=== PATIENT | male | born 1955 | race Caucasian/White ===

== ENCOUNTER 2023-01-10 22:03 | Emergency (ER) | payer BC, MEDICARE, OTHER ==
[2023-01-10 22:25] VITALS: BP 164/98; PULSE 98
[2023-01-10] MEDS ORDERED: Lidocaine 1% 10 ML MDV INJECT ONE (22:27)
== END 2023-01-10 23:23 | disposition home or self-care (01) ==
LOC: JD.ED 22:03
DX: S01.81XA Laceration without foreign body of other part of head, initial encounter (principal); I10 Essential (primary) hypertension; E78.00 Pure hypercholesterolemia, unspecified; E11.9 Type 2 diabetes mellitus without complications; Z88.5 Allergy status to narcotic agent; Z79.82 Long term (current) use of aspirin; Z79.899 Other long term (current) drug therapy; Z79.84 Long term (current) use of oral hypoglycemic drugs; W01.198A Fall on same level from slipping, tripping and stumbling with subsequent striking against other object, initial encounter
CPT/HCPCS: 12013; 99282; J3490

== ENCOUNTER 2023-05-19 05:08 | Inpatient (IN) | payer OTHER ==
[2023-05-19] MEDS ORDERED: Ondansetron 4 MG/2 ML SDV IVPUSH ONE (05:45)
[2023-05-19] MEDS: Sodium Chloride 0.9% 1,000 ML IV SCH ×4 (05:52→21:08)
[2023-05-19] MEDS ORDERED: Thiamine 200 MG/2 ML MDV IVPUSH ONE (06:02)
[2023-05-19 06:39] LABS: BASOPHILS ABSOLUTE AUTO 0.1 K/mm3 (0.0-0.2); EOSINOPHILS ABSOLUTE AUTO 0.1 K/mm3 (0.0-0.4); EOSINOPHILS PERCENT AUTO 1.4 % (0.0-6.0); HEMATOCRIT 24.1 % (42.0-52.0); HEMOGLOBIN 8.8 gm/dl (14.0-18.0); IMMATURE GRAN ABSOLUTE AUTO 0.08 K/mm3 (0.00-0.05); LYMPHOCYTES ABSOLUTE AUTO 1.9 K/mm3 (1.0-4.8); LYMPHOCYTES PERCENT AUTO 22.4 % (24.0-44.0); MEAN CORPUSCULAR HEMOGLOBIN 37.8 pg (28.0-32.0); MEAN CORPUSCULAR HGB CONC 36.5 g/dl (32.0-36.0); MEAN CORPUSCULAR VOLUME 103.4 fl (83.0-99.0); MEAN PLATELET VOLUME 9.9 fl (9.4-12.4); MONOCYTES ABSOLUTE AUTO 1.1 K/mm3 (0.0-0.8); MONOCYTES PERCENT AUTO 12.9 % (0.0-8.0); NEUTROPHILS ABSOLUTE AUTO 5.1 K/mm3 (1.8-7.7); NEUTROPHILS PERCENT AUTO 61.3 % (41.0-71.0); NRBC ABSOLUTE 0.03 (0.00-0.02); NRBC PERCENT 0.4 % (0.0-0.2); PLATELET COUNT,PLT 235 K/mm3 (150-400); RED BLOOD CELL COUNT 2.33 M/mm3 (4.52-5.90); WHITE BLOOD CELL COUNT,WBC 8.29 K/mm3 (3.9-11.3)
[2023-05-19 06:44] LABS: APPEARANCE,URINE CLOUDY (Clear); BILIRUBIN,URINE 2+ (Negative); COLOR,URINE AMBER (Yellow); GLUCOSE,URINE NEGATIVE (Negative); KETONES,URINE 1+ (Negative); LEUKOCYTE ESTERASE,URINE TRACE (Negative); NITRITE,URINE NEGATIVE (Negative); OCCULT BLOOD,URINE 3+ (Negative); PH,URINE 5.5 (5.0-8.0); PROTEIN,URINE 3+ (Negative); UROBILINOGEN,URINE 0.2 (0.2-1.0)
[2023-05-19 06:50] LABS: A/G RATIO 0.7 (1-2); ALBUMIN 2.8 g/dl (3.4-5.0); ANION GAP 20.6 (5-15); BILIRUBIN TOTAL 1.1 mg/dL (0.2-1.0); BUN/CREATININE RATIO 6.9 (14-18); C-REACTIVE PROTEIN 0.6 mg/dL (<1.0); CALCIUM 7.8 mg/dL (8.5-10.1); CREATININE 3.5 mg/dL (0.7-1.3); EST CRCL DRUG DOSING (CG) 23.62 mL/min; MAGNESIUM 0.5 mg/dL (1.8-2.4)
[2023-05-19 06:52] LABS: POTASSIUM,K 1.6 mEq/L (3.5-5.1)
[2023-05-19] MEDS ORDERED: Magnesium Sulfate/Water 2 GM in Premix Bag 1 BAG IV ONE ×2 (06:55→18:41)
[2023-05-19 06:59] LABS: INR 1.21; PROTHROMBIN TIME 12.8 SECONDS (9.7-12.0)
[2023-05-19 07:02] LABS: BACTERIA,URINE MANY /hpf (FEW); MUCUS,URINE RARE /hpf (FEW); RBC,URINE >100 /hpf (0-5); RENAL EPITHELIAL CELLS,URINE 0-5 /hpf (0-5); SQUAMOUS EPITHELIAL CELLS,UR 0-5 /hpf (0-5); WBC,URINE 0-5 /hpf (0-5)
[2023-05-19] MEDS: Potassium Chloride 10 MEQ in Premix Bag 1 BAG IV SCH ×12 (07:19→22:37)
[2023-05-19 07:25] LABS: CORONAVIRUS COVID-19 NAA NEGATIVE (NEGATIVE); INFLUENZA A NAA NEGATIVE (NEGATIVE); RESPIRATORY SYNCYTIAL VIR NAA NEGATIVE (NEGATIVE)
[2023-05-19] MEDS ORDERED: cefTRIAXone 1 GM in Sodium Chloride 0.9% 100 ML IV ONE (08:02)
[2023-05-19 11:12] LABS: BASOPHILS PERCENT AUTO 0.5 % (0.0-1.0); EOSINOPHILS ABSOLUTE AUTO 0.1 K/mm3 (0.0-0.4); EOSINOPHILS PERCENT AUTO 1.7 % (0.0-6.0); HEMATOCRIT 23.8 % (42.0-52.0); HEMOGLOBIN 8.7 gm/dl (14.0-18.0); IMMATURE GRAN PERCENT AUTO 1.2 % (0.0-0.4); LYMPHOCYTES ABSOLUTE AUTO 1.7 K/mm3 (1.0-4.8); LYMPHOCYTES PERCENT AUTO 20.7 % (24.0-44.0); MEAN CORPUSCULAR HGB CONC 36.6 g/dl (32.0-36.0); MEAN CORPUSCULAR VOLUME 103.9 fl (83.0-99.0); MEAN PLATELET VOLUME 9.5 fl (9.4-12.4); MONOCYTES ABSOLUTE AUTO 1.2 K/mm3 (0.0-0.8); MONOCYTES PERCENT AUTO 13.8 % (0.0-8.0); NEUTROPHILS ABSOLUTE AUTO 5.2 K/mm3 (1.8-7.7); NEUTROPHILS PERCENT AUTO 62.1 % (41.0-71.0); PLATELET COUNT,PLT 216 K/mm3 (150-400); RED BLOOD CELL COUNT 2.29 M/mm3 (4.52-5.90); WHITE BLOOD CELL COUNT,WBC 8.36 K/mm3 (3.9-11.3)
[2023-05-19] MEDS: Sodium Chloride 0.9% 10 ML Syringe FLUSH PRN ×5 (11:22→12:24)
[2023-05-19 11:34] LABS: A/G RATIO 0.8 (1-2); ALBUMIN 2.6 g/dl (3.4-5.0); ANION GAP 21.6 (5-15); BUN/CREATININE RATIO 7.3 (14-18); CALCIUM 7.1 mg/dL (8.5-10.1); EST CRCL DRUG DOSING (CG) 27.56 mL/min
[2023-05-19 11:39] LABS: POTASSIUM,K 1.6 mEq/L (3.5-5.1)
[2023-05-19] MEDS ORDERED: Potassium Chloride 20 MEQ Tab.ER PO ONE (12:25)
[2023-05-19] MEDS ORDERED: Ondansetron 4 MG Tab.DIS PO PRN (12:27)
[2023-05-19] MEDS ORDERED: Sodium Chloride 0.9% 10 ML Syringe FLUSH PRN (12:27)
[2023-05-19] MEDS ORDERED: Ondansetron 4 MG/2 ML SDV IV PRN (12:27)
[2023-05-19] MEDS: Potassium Chloride 20 MEQ Tab.ER PO SCH ×3 (14:31→19:18)
[2023-05-19] MEDS: Heparin Sodium 5,000 Units/ML Vial SUBCUT SCH ×2 (14:31→19:31)
[2023-05-19] MEDS: Insulin Lispro 100 Unit/ML 3 ML KwikPen SUBCUT SCH ×2 (17:07→21:36)
[2023-05-19] MEDS: traMADol 50 MG Tab PO PRN (18:03)
[2023-05-19] MEDS ORDERED: Potassium Chloride 10 MEQ in Premix Bag 1 BAG IV SCH (20:00)
[2023-05-19] MEDS ORDERED: Potassium Chloride 20 MEQ Tab.ER PO SCH (21:45)
[2023-05-20] MEDS: Potassium Chloride 20 MEQ Tab.ER PO SCH ×7 (00:16→18:50)
[2023-05-20] MEDS: Potassium Chloride 10 MEQ in Premix Bag 1 BAG IV SCH ×8 (01:52→11:21)
[2023-05-20] MEDS: Heparin Sodium 5,000 Units/ML Vial SUBCUT SCH ×3 (03:56→19:35)
[2023-05-20] MEDS: Sodium Chloride 0.9% 1,000 ML IV SCH (04:06)
[2023-05-20] MEDS: traMADol 50 MG Tab PO PRN ×2 (05:17→13:31)
[2023-05-20 06:21] LABS: BASOPHILS PERCENT AUTO 0.6 % (0.0-1.0); EOSINOPHILS ABSOLUTE AUTO 0.1 K/mm3 (0.0-0.4); EOSINOPHILS PERCENT AUTO 2.4 % (0.0-6.0); IMMATURE GRAN ABSOLUTE AUTO 0.07 K/mm3 (0.00-0.05); IMMATURE GRAN PERCENT AUTO 1.3 % (0.0-0.4); LYMPHOCYTES ABSOLUTE AUTO 1.2 K/mm3 (1.0-4.8); LYMPHOCYTES PERCENT AUTO 21.4 % (24.0-44.0); MEAN CORPUSCULAR HEMOGLOBIN 37.2 pg (28.0-32.0); MEAN CORPUSCULAR HGB CONC 35.2 g/dl (32.0-36.0); MEAN CORPUSCULAR VOLUME 105.5 fl (83.0-99.0); MEAN PLATELET VOLUME 9.5 fl (9.4-12.4); MONOCYTES ABSOLUTE AUTO 0.7 K/mm3 (0.0-0.8); MONOCYTES PERCENT AUTO 13.8 % (0.0-8.0); NEUTROPHILS ABSOLUTE AUTO 3.3 K/mm3 (1.8-7.7); NEUTROPHILS PERCENT AUTO 60.5 % (41.0-71.0); PLATELET COUNT,PLT 214 K/mm3 (150-400); RED BLOOD CELL COUNT 1.99 M/mm3 (4.52-5.90); WHITE BLOOD CELL COUNT,WBC 5.37 K/mm3 (3.9-11.3)
[2023-05-20 06:35] LABS: HEMOGLOBIN 7.4 gm/dl (14.0-18.0)
[2023-05-20 06:55] LABS: A/G RATIO 0.7 (1-2); ALBUMIN 2.2 g/dl (3.4-5.0); ANION GAP 16.4 (5-15); BILIRUBIN TOTAL 0.6 mg/dL (0.2-1.0); BUN/CREATININE RATIO 7.3 (14-18); CALCIUM 6.5 mg/dL (8.5-10.1); CREATININE 2.6 mg/dL (0.7-1.3); EST CRCL DRUG DOSING (CG) 30.77 mL/min; PROTEIN TOTAL,TP 5.4 g/dl (6.4-8.2)
[2023-05-20 07:06] LABS: POTASSIUM,K 2.4 mEq/L (3.5-5.1)
[2023-05-20] MEDS ORDERED: Potassium Chloride 20 MEQ Tab.ER PO SCH (07:15)
[2023-05-20] MEDS: Insulin Lispro 100 Unit/ML 3 ML KwikPen SUBCUT SCH ×3 (08:00→17:49)
[2023-05-20] MEDS ORDERED: Acetaminophen 325 MG Tab PO PRN (08:12)
[2023-05-20] MEDS: NS with KCl 40mEq 1,000 ML IV SCH ×2 (08:29→16:44)
[2023-05-20] MEDS ORDERED: Potassium Chloride 10 MEQ in Premix Bag 1 BAG IV SCH (11:45)
[2023-05-20 15:35] LABS: ANION GAP 17.8 (5-15); BUN/CREATININE RATIO 7.8 (14-18); CALCIUM 6.8 mg/dL (8.5-10.1); CREATININE 2.3 mg/dL (0.7-1.3); EST CRCL DRUG DOSING (CG) 34.78 mL/min; POTASSIUM,K 3.8 mEq/L (3.5-5.1)
[2023-05-20 20:24] VITALS: BP 141/86; PULSE 86
== END 2023-05-20 20:21 | DRG 641 ==
LOC: JD.ED 05:08 → UNDOADMIN 12:27 → JD.MS 12:27
PROVIDERS: ADMIT Hospitalist; ATTEND Hospitalist
DX: N39.0 Urinary tract infection, site not specified (principal); R31.9 Hematuria, unspecified; E83.42 Hypomagnesemia; E87.6 Hypokalemia; E86.0 Dehydration; N17.9 Acute kidney failure, unspecified; N13.2 Hydronephrosis with renal and ureteral calculous obstruction; I49.9 Cardiac arrhythmia, unspecified; E11.9 Type 2 diabetes mellitus without complications; I10 Essential (primary) hypertension; H91.90 Unspecified hearing loss, unspecified ear; E78.00 Pure hypercholesterolemia, unspecified; F10.10 Alcohol abuse, uncomplicated; D53.9 Nutritional anemia, unspecified; I48.91 Unspecified atrial fibrillation; R82.71 Bacteriuria; R19.7 Diarrhea, unspecified; Z79.82 Long term (current) use of aspirin; Z79.899 Other long term (current) drug therapy; Z88.5 Allergy status to narcotic agent; Z79.84 Long term (current) use of oral hypoglycemic drugs; Z98.890 Other specified postprocedural states; Z11.52 Encounter for screening for COVID-19
CPT/HCPCS: 0241U; 36415; 71045; 72100; 74176; 76775; 80048; 80053; 80307; 81001; 82947; 83605; 83690; 83735; 84132; 84484; 85025; 85610; 85730; 86140; 87040; 87045; 87046; 87899; 93005; 97110; 97116; 97162; 93010; 96361; 96365; 96366; 96367; 96368; 96375; 99285; 99285-25; A9270-GY; J0696; J1644; J2405; J3411; J3475; J3480; J3490; J7030

== ENCOUNTER 2023-10-13 07:15 | Day surgery (SDC) | payer OTHER, MEDICARE ==
[~2023-10-13 07:15] MED LIST: Lidocaine 2% 5 ML SDV ONE; Propofol 200 MG/20 ML SDV ONE; Sodium Chloride 0.9% 10 ML Syringe FLUSH PRN; Sodium Chloride 0.9% 10 ML Syringe FLUSH SCH
[2023-10-13] MEDS ORDERED: Ondansetron 4 MG/2 ML SDV IVPUSH PRN (07:35)
[2023-10-13] MEDS: Lactated Ringers 1,000 ML IV SCH (07:57)
[2023-10-13 08:14] LABS: ANION GAP 19.5 (5-15); BILIRUBIN TOTAL 1.3 mg/dL (0.2-1.0); BUN/CREATININE RATIO 13.8 (14-18); CREATININE 1.6 mg/dL (0.7-1.3); EST CRCL DRUG DOSING (CG) 51.39 mL/min; POTASSIUM,K 3.5 mEq/L (3.5-5.1)
[2023-10-13] MEDS ORDERED: Propofol 200 MG/20 ML SDV ONE ×3 (08:46→09:28)
[2023-10-13 10:50] VITALS: BP 121/79; PULSE 59
== END 2023-10-13 10:35 | disposition home or self-care (01) ==
LOC: JD.SDS 07:15
PROVIDERS: ATTEND Student in an Organized Health Care Education/Training Program
DX: Z12.11 Encounter for screening for malignant neoplasm of colon (principal); D12.2 Benign neoplasm of ascending colon; K64.4 Residual hemorrhoidal skin tags; K57.30 Diverticulosis of large intestine without perforation or abscess without bleeding; I10 Essential (primary) hypertension; K21.9 Gastro-esophageal reflux disease without esophagitis; R60.9 Edema, unspecified; E11.9 Type 2 diabetes mellitus without complications; E79.0 Hyperuricemia without signs of inflammatory arthritis and tophaceous disease; N28.9 Disorder of kidney and ureter, unspecified; E78.00 Pure hypercholesterolemia, unspecified; Z88.5 Allergy status to narcotic agent; Z98.890 Other specified postprocedural states; Z79.82 Long term (current) use of aspirin; Z79.84 Long term (current) use of oral hypoglycemic drugs; Z79.899 Other long term (current) drug therapy; Z87.891 Personal history of nicotine dependence
CPT/HCPCS: 36415; 45380; 80053; 82947; 88305; J2704; J7120; 00811; 99203; J3490

== ENCOUNTER 2024-06-19 11:41 | Emergency (ER) | payer MEDICARE, OTHER ==
[2024-06-19] MEDS: Sodium Chloride 0.9% 1,000 ML IV ONE (13:10)
[2024-06-19 13:21] LABS: BASOPHILS ABSOLUTE AUTO 0.1 K/mm3 (0.0-0.2); EOSINOPHILS ABSOLUTE AUTO 0.8 K/mm3 (0.0-0.4); HEMATOCRIT 48.8 % (42.0-52.0); IMMATURE GRAN ABSOLUTE AUTO 0.02 K/mm3 (0.00-0.05); IMMATURE GRAN PERCENT AUTO 0.3 % (0.0-0.4); LYMPHOCYTES ABSOLUTE AUTO 2.5 K/mm3 (1.0-4.8); MEAN CORPUSCULAR HEMOGLOBIN 31.7 pg (28.0-32.0); MEAN CORPUSCULAR HGB CONC 33.8 g/dl (32.0-36.0); MEAN PLATELET VOLUME 10.6 fl (9.4-12.4); MONOCYTES ABSOLUTE AUTO 0.7 K/mm3 (0.0-0.8); MONOCYTES PERCENT AUTO 8.8 % (0.0-8.0); NEUTROPHILS ABSOLUTE AUTO 3.7 K/mm3 (1.8-7.7); NEUTROPHILS PERCENT AUTO 47.9 % (41.0-71.0); PLATELET COUNT,PLT 184 K/mm3 (150-400); WHITE BLOOD CELL COUNT,WBC 7.69 K/mm3 (3.9-11.3)
[2024-06-19 13:26] LABS: HEMOGLOBIN 16.5 gm/dl (14.0-18.0); MEAN CORPUSCULAR VOLUME 93.8 fl (83.0-99.0)
[2024-06-19 13:51] LABS: A/G RATIO 1.2 (1-2); ALBUMIN 3.9 g/dl (3.4-5.0); ANION GAP 17.3 (5-15); BILIRUBIN TOTAL 0.8 mg/dL (0.2-1.0); BUN/CREATININE RATIO 12.9 (14-18); CALCIUM 9.3 mg/dL (8.5-10.1); CREATININE 1.4 mg/dL (0.7-1.3); EST CRCL DRUG DOSING (CG) 60.35 mL/min; MAGNESIUM 1.9 mg/dL (1.8-2.4); POTASSIUM,K 4.3 mEq/L (3.5-5.1); PROTEIN TOTAL,TP 7.3 g/dl (6.4-8.2)
[2024-06-19 16:19] VITALS: BP 111/91; PULSE 75
[2024-06-20] MEDS: Acetaminophen 325 MG Tab PO ONE (07:47)
== END 2024-06-19 16:00 | disposition home or self-care (01) ==
LOC: JD.ED 11:41
DX: R53.83 Other fatigue (principal); I10 Essential (primary) hypertension; E78.00 Pure hypercholesterolemia, unspecified; K21.9 Gastro-esophageal reflux disease without esophagitis; E11.9 Type 2 diabetes mellitus without complications; Z86.16 Personal history of COVID-19; Z88.5 Allergy status to narcotic agent; Z79.52 Long term (current) use of systemic steroids; Z79.82 Long term (current) use of aspirin; Z79.84 Long term (current) use of oral hypoglycemic drugs; Z79.899 Other long term (current) drug therapy
CPT/HCPCS: 36415; 71045; 80053; 83735; 83880; 84484; 85025; 87428; 93005; 96360; 96361; 99284; J7030